=== PATIENT | male | born 1975 ===

== ENCOUNTER 2017-07-03 11:02 | Emergency (ER) | payer SELFPAY ==
[2017-07-03 11:14] VITALS: TEMP 98.3; O2SAT 98
[2017-07-03] MEDS ORDERED: Tetracaine 0.5% Ophth 2 ML BOTTLE OU ONE (11:40)
[2017-07-03] MEDS ORDERED: Fluorescein 1 mg Ophthalmic Strip OS ONE (11:40)
[2017-07-03] MEDS ORDERED: Fluorescein 1 mg Ophthalmic Strip ONE (11:43)
[2017-07-03] MEDS ORDERED: Tetracaine 0.5% Ophth (OR ONLY) ONE (11:43)
[2017-07-03] MEDS ORDERED: Ofloxacin 0.3% Ophth Soln OS STA (12:16)
--- NOTE | 2017-07-03 12:16 | C.PDOC ---
History Of Present Illness 41 year old male complaining of redness and a foreign body sensation to the left eye for 2 days. Patient states that his child accidentally poked his eye, then yesterday at work [employer] may have gotten into his eye. Patient is now complaining of blurred vision and pain with blinking. Denies discharge or fever. Time Seen by Provider: 07/03/17 11:30 Chief Complaint (Nursing): Eye Problem History Per: Patient History/Exam Limitations: no limitations Onset/Duration Of Symptoms: Days (2) Current Symptoms Are (Timing): Still Present Severity: Mild Associated Symptoms: Pain (when blinking), FB Sensation. denies: Discharge From Eye Additional History Per: Patient Past Medical History Reviewed: Historical Data, Nursing Documentation, Vital Signs Vital Signs: Last Vital Signs Temp 98.3 F 07/03/17 11:12 Pulse 70 07/03/17 12:44 Resp 16 07/03/17 12:44 BP 119/81 07/03/17 12:44 Pulse Ox 98 07/03/17 13:44 - Medical History PMH: No Chronic Diseases Surgical History: No Surg Hx Family History: States: Unknown Family Hx - Social History Hx Tobacco Use: No Hx Alcohol Use: Yes Hx Substance Use: No - Immunization History Hx Tetanus Toxoid Vaccination: No Hx Influenza Vaccination: No Hx Pneumococcal Vaccination: No Review Of Systems Except As Marked, All Systems Reviewed And Found Negative. Constitutional: Negative for: Fever Eyes: Positive for: Pain (when blinking), Vision Change, Redness, Other ( Foreign body sensation. No discharge) Neurological: Negative for: Headache, Dizziness Physical Exam - Physical Exam Appears: Non-toxic, No Acute Distress Skin: Warm, Dry Head: Atraumatic, Normacephalic Eye(s): right: Normal Inspection, left: PERRL, EOMI, Photophobia, Other ( Diffuse conjunctival injeciton. Punctate white lesion to the left eye at the 8 o 'clock position. ) Nose: Normal Oral Mucosa: Moist Lips: Normal Appearing Throat: Normal, No Erythema Neck: Normal ROM Chest: Symmetrical Extremity: Normal ROM (x4) Neurological/Psych: Oriented x3, Normal Speech ED Course And Treatment O2 Sat by Pulse Oximetry: 98 (RA) Pulse Ox Interpretation: Normal Medical Decision Making Medical Decision Making: Impression: * Redness and foreign body sensation to the left eye for 2 days, lsuspect corneal abrasion Plans: * Fluorescein * Tetreacaine * Ofloxacin Fluorescein and Tetracaine with (+) uptake at the 8 o'clock position. No foreign body on eye lid eversion. Ordered ofloxacin which was instilled. Patient was advised to follow up with labor and delivery registered nurse within 2 days for further evaluation and to return if symptoms worsens. Disposition Counseled Patient/Family Regarding: Need For Followup, Rx Given - Disposition Referrals: Javier Dupree MD [Staff Provider] - Disposition: HOME/ ROUTINE Disposition Time: 12:44 Condition: GOOD Additional Instructions: apply 1-2 drops to affected eye three times per day it is very important that you see the labor and delivery registered nurse within one week See information on sheet for Dr Dupree aplique 1-2 gotas en el lyndsey afectado ta veces al da es muy importante que jozef al oftalmlogo dentro de donna semana Ru la informacin en la hoja de Dr Dupree Instructions: Corneal Abrasion (ED) Forms: [facility] (Turkmen) Print Language: TAJIK - POA Present On Arrival: None - Clinical Impression Clinical Impression: Corneal abrasion - Scribe Statement The provider has reviewed the documentation as recorded by the Scribe Julián pappas All medical record entries made by the Scribe were at my direction and personally dictated by me. I have reviewed the chart and agree that the record accurately reflects my personal performance of the history, physical exam, medical decision making, and the department course for this patient. I have also personally directed, reviewed, and agree with the discharge instructions and disposition.
[2017-07-03 12:45] VITALS: BP 119/81; PULSE 70; RESP 16
== END 2017-07-03 12:44 | disposition home or self-care (01) ==
LOC: C.ER 11:02
DX: S05.02XA Injury of conjunctiva and corneal abrasion without foreign body, left eye, initial encounter (principal); X58.XXXA Exposure to other specified factors, initial encounter

== ENCOUNTER 2017-11-18 02:15 | Emergency (ER) | payer SELFPAY ==
[2017-11-18 02:28] VITALS: PULSE 100
[2017-11-18] MEDS ORDERED: Amoxicillin-Clav 500-125 mg Tab PO STA (03:12)
--- NOTE | 2017-11-18 03:12 | C.PDOC ---
History Of Present Illness 42 year old male presents to the ER with a complaint of right ear ache for the past 3 days that radiates to the right jaw area. Denies pain or complaints to the left ear.No headache, dizziness, FB, or draining Time Seen by Provider: 11/18/17 02:43 Chief Complaint (Nursing): ENT Problem History Per: Patient History/Exam Limitations: None Onset/Duration Of Symptoms: Days Current Symptoms Are (Timing): Still Present Symptoms Have Been: Continuous Past Medical History Reviewed: Historical Data, Nursing Documentation, Vital Signs Vital Signs: Last Vital Signs Temp 97.9 F 11/18/17 03:42 Pulse 100 H 11/18/17 03:42 Resp 18 11/18/17 03:42 BP 148/96 H 11/18/17 03:42 Pulse Ox 100 11/18/17 05:08 Family History: States: Unknown Family Hx - Social History Hx Tobacco Use: No Hx Alcohol Use: Yes Hx Substance Use: No - Immunization History Hx Tetanus Toxoid Vaccination: No Hx Influenza Vaccination: No Hx Pneumococcal Vaccination: No Review Of Systems Constitutional: Negative for: Fever, Chills ENT: Positive for: Ear Pain. Negative for: Ear Discharge, Throat Pain Physical Exam - Physical Exam Appears: Non-toxic, No Acute Distress Skin: Normal Color, Warm, Dry Head: Atraumatic, Normacephalic, No Swelling (Facial) Eye(s): bilateral: Normal Inspection Ear(s): Right: TM Erythema (with minimal bulging. No effusion.) Nose: Normal Oral Mucosa: Moist Neck: Normal, Supple, No Other (Swelling) Neurological/Psych: Oriented x3, Normal Speech ED Course And Treatment O2 Sat by Pulse Oximetry: 100 (room air) Pulse Ox Interpretation: Normal Progress Note: Motrin administered for pain. Patient is resting comfortably in no acute distress, will start on augmentin and instructed to follow up with PMD for further evaluation or return to the ER if symptoms worsen. Disposition Counseled Patient/Family Regarding: Diagnosis, Need For Followup - Disposition Referrals: [facility] [Outside] Disposition: HOME/ ROUTINE Disposition Time: 03:09 Condition: STABLE Additional Instructions: Take meds as directed Return to ER if worse Prescriptions: Amoxicillin/Clavulanate [Augmentin 500 MG-125 MG] 1 tab PO TID #21 tab Ibuprofen [Motrin] 600 mg PO Q6H #20 tab Instructions: Otitis Media (ED) Forms: [employer] (Eritrean) Print Language: MONTSERRATIAN - Clinical Impression Clinical Impression: Otitis media - PA / KIER HAND / Resident Statement MD/DO has reviewed & agrees with the documentation as recorded. - Scribe Statement The provider has reviewed the documentation as recorded by the Scribe Joey Ellison All medical record entries made by the Candidoibyg were at my direction and personally dictated by me. I have reviewed the chart and agree that the record accurately reflects my personal performance of the history, physical exam, medical decision making, and the department course for this patient. I have also personally directed, reviewed, and agree with the discharge instructions and disposition.
[2017-11-18] MEDS ORDERED: Amoxicillin-Clav 500-125 mg Tab PO ONE (03:26)
[2017-11-18 03:44] VITALS: BP 148/96; RESP 18; TEMP 97.9
[2017-11-18 05:06] VITALS: O2SAT 100
== END 2017-11-18 03:42 | disposition home or self-care (01) ==
LOC: C.ER 02:15
DX: H66.90 Otitis media, unspecified, unspecified ear (principal)